=== PATIENT | female | born 2005 | race Caucasian/White ===

== ENCOUNTER 2024-10-24 16:14 | Inpatient (IN) | payer BC ==
[2024-10-24 21:38] VITALS: BMI 33.3
[2024-10-24] MEDS: Lactated Ringer's 1,000 ML IV SCH (22:10)
[2024-10-24] MEDS ORDERED: Misoprostol 200 MCG TAB PR PRN (22:25)
[2024-10-24] MEDS ORDERED: Acetaminophen 500 MG TAB PO PRN (22:25)
[2024-10-24] MEDS ORDERED: HYDROcodone/Acetaminophen 5/325 mg Tablet PO PRN (22:25)
[2024-10-24] MEDS ORDERED: Ondansetron PF 4 MG/2 ML Vial IVP PRN (22:25)
[2024-10-24] MEDS ORDERED: Carboprost 250 MCG/ML AMP IM PRN (22:25)
[2024-10-24] MEDS ORDERED: Zolpidem Tartrate 5 MG TAB PO PRN (22:25)
[2024-10-24] MEDS ORDERED: Promethazine HCl 25 MG/ML VIAL IM PRN (22:25)
[2024-10-24] MEDS ORDERED: Methylergonovine 0.2 MG/ML VIAL IM PRN (22:25)
[2024-10-24] MEDS ORDERED: hydrALAZINE 20 MG/ML VIAL SLOW IVP PRN (22:25)
[2024-10-24] MEDS ORDERED: Ibuprofen 800 MG TAB PO PRN (22:25)
[2024-10-24] MEDS ORDERED: Lidocaine 1% (PF) 30 ML VIAL SC PRN (22:25)
[2024-10-24] MEDS ORDERED: fentaNYL 50 mcg/mL 1 mL Vial SLOW IVP PRN (22:25)
[2024-10-24] MEDS ORDERED: Diphenoxylate HCl/Atropine Tablet PO PRN (22:25)
[2024-10-24] MEDS ORDERED: Oxytocin 30 units/NS 500 ML 500 ML IV SCH (22:30)
[2024-10-24 22:38] LABS: Hematocrit 35.6 % (34.9-44.5); Hemoglobin 12.1 g/dL (12.0-15.5); Mean Corpuscular Hemoglobin 29.2 pg (27.0-33.0); Mean Corpuscular Volume 85.8 fL (81.6-98.3); Mean Platelet Volume 9.3 fL (7.4-10.4); Platelet Count 286 10x3/uL (150-450); RBC Distribution Width 13.5 % (11.5-14.5); Red Blood Cell (RBC) Count 4.15 10x6/uL (3.90-5.03); White Blood Cell (WBC) Count 9.9 10x3/uL (3.5-10.5)
[2024-10-24] MEDS: Misoprostol 100 MCG TAB VAG SCH (22:55)
[2024-10-24 23:06] LABS: HBsAg Index 0.19 S/CO (0-0.99); Hep B Surf Ag - L&D Non-Reactive S/CO (NonReactive); Syphilis Antibody Nonreactive (Nonreactive); Syphilis Antibody Index 0.06 S/CO (<1.00 Non-Reactive)
[2024-10-25] MEDS: fentaNYL/Ropivacaine Epidural 100 ML ONE (11:03)
[2024-10-25] MEDS ORDERED: Ondansetron PF 4 MG/2 ML Vial IVP PRN ×2 (12:03→18:08)
[2024-10-25] MEDS ORDERED: Acetaminophen 325 MG TAB PO PRN (12:03)
[2024-10-25] MEDS ORDERED: Promethazine HCl 25 MG/ML VIAL IM PRN ×2 (12:03→18:08)
[2024-10-25] MEDS ORDERED: Lactated Ringer's 500 ML IV PRN (12:03)
[2024-10-25] MEDS ORDERED: Naloxone HCl 0.4 mg/ml Vial IVP PRN ×2 (12:03)
[2024-10-25] MEDS ORDERED: Moisturizing Cream (Eucerin) 113 GM JAR TOP PRN (12:03)
[2024-10-25] MEDS ORDERED: ePHEDrine Sulfate 50 MG/10 ML VIAL SLOW IVP PRN (12:03)
[2024-10-25] MEDS ORDERED: diphenhydrAMINE 50 MG/ML VIAL IVP PRN (12:03)
[2024-10-25] MEDS ORDERED: fentaNYL 2 mcg/Ropivacaine 0.2% Epidural 100 ML CADD EPIDURAL SCH (12:15)
[2024-10-25] MEDS ORDERED: Communication Order-Pharmacy FS SCH (12:15)
[2024-10-25] MEDS: Oxytocin 30 units/NS 500 ML 500 ML IV SCH (15:29)
[2024-10-25] MEDS ORDERED: hydrALAZINE 20 MG/ML VIAL SLOW IVP PRN (18:08)
[2024-10-25] MEDS ORDERED: diphenhydrAMINE 25 MG CAP PO PRN (18:08)
[2024-10-25] MEDS ORDERED: Bisacodyl 10 MG SUPP PR PRN (18:08)
[2024-10-25] MEDS ORDERED: Preparation H Ointment 28 GM TUBE PR PRN (18:08)
[2024-10-25] MEDS ORDERED: Benzocaine-Menthol 82.5 ML CAN TOP PRN (18:08)
[2024-10-25] MEDS ORDERED: HYDROcodone/Acetaminophen 5/325 mg Tablet PO PRN ×2 (18:08)
[2024-10-25] MEDS ORDERED: Milk Of Magnesia 30 ML UDCUP PO PRN (18:08)
[2024-10-25] MEDS ORDERED: Lanolin Ointment 7 GM TUBE TOP PRN (18:08)
[2024-10-25] MEDS: Ferrous Sulfate 325 MG TAB PO SCH (19:36)
[2024-10-25] MEDS: Boostrix 0.5 ML (Tdap) VIAL (>/=7 yrs of age) IM ONE (19:36)
[2024-10-25] MEDS: Ibuprofen 800 MG TAB PO SCH (21:09)
[2024-10-25] MEDS: Docusate 100 MG CAP PO SCH (21:09)
[2024-10-26] MEDS: Prenatal Vitamin 1 TAB PO SCH (08:42)
[2024-10-26] MEDS: Ferrous Sulfate 325 MG TAB PO SCH (13:28)
[2024-10-27 07:41] VITALS: BP 125/72; TEMP 98.3
== END 2024-10-27 14:30 | disposition home or self-care (01) | DRG 807 ==
LOC: CSHLD 21:08 → CSHPED 10-25 17:50
PROVIDERS: ADMIT Student in an Organized Health Care Education/Training Program; ATTEND Student in an Organized Health Care Education/Training Program
PROC: 10E0XZZ Delivery of Products of Conception, External Approach (ICD-10-PCS; principal; 2024-10-25)
PROC: 0HQ9XZZ Repair Perineum Skin, External Approach (ICD-10-PCS; 2024-10-25)
DX: O24.429 Gestational diabetes mellitus in childbirth, unspecified control (principal); Z37.0 Single live birth; Z3A.39 39 weeks gestation of pregnancy; O70.0 First degree perineal laceration during delivery
CPT/HCPCS: 36415; 36416; 51702; 85027; 86780; 86850; 86900; 86901; 87340; 99285; J2590; J7120